=== PATIENT | male | born 1995 | race Caucasian/White ===

== ENCOUNTER 2021-04-15 10:31 | Inpatient (IN) | payer OTHER ==
[~2021-04-15] VITALS: Ht 175.3 cm; Wt 76.6 kg
[2021-04-15] MEDS ORDERED: LORazepam 2 MG TABLET PO PRN (13:15)
[2021-04-15] MEDS ORDERED: ZOLPIDEM TARTRATE 10 MG TABLET PO PRN (13:15)
[2021-04-15] MEDS ORDERED: HALOPERIDOL 5 MG TABLET PO PRN (13:15)
[2021-04-15 16:15] VITALS: BP 121/71
[2021-04-16] MEDS ORDERED: GuaiFENesin/D-METHORPHAN [SUGAR-FREE] 200-20MG/10 ML SYRUP UDCUP PO PRN (06:30)
[2021-04-16] MEDS ORDERED: NICOTINE 14 MG/24 HOUR PATCH TD PRN (06:30)
[2021-04-16] MEDS ORDERED: LOPERAMIDE HCL 2 MG CAPSULE PO PRN (06:30)
[2021-04-16] MEDS ORDERED: PETROLATUM,WHITE 28 GM JELLY TP PRN (06:30)
[2021-04-16] MEDS ORDERED: ALBUTEROL SULFATE HFA 90 MCG/PUFF 8 GM INHALER IH PRN (06:30)
[2021-04-16] MEDS ORDERED: DOCUSATE SODIUM 100 MG CAPSULE PO PRN (06:30)
[2021-04-16] MEDS ORDERED: IBUPROFEN 400 MG TABLET PO PRN (06:30)
[2021-04-16] MEDS ORDERED: CloNIDine HCL 0.1 MG TABLET PO PRN (06:30)
[2021-04-16] MEDS ORDERED: ACETAMINOPHEN 325 MG TABLET PO PRN (06:30)
[2021-04-16] MEDS ORDERED: MAGNESIUM HYDROXIDE SUSPENSION 30 ML UDCUP PO PRN (06:30)
[2021-04-16] MEDS ORDERED: ONDANSETRON HCL 4 MG TABLET PO PRN (06:30)
[2021-04-16] MEDS ORDERED: MAG HYDROX/AL HYDROX/SIMETH ES 30 ML SUSPENSION UDCUP PO PRN (06:30)
[2021-04-16 07:51] LABS: EOSINOPHILS % (AUTO) 4.6 % (1.0-6.0); HEMATOCRIT 49.9 % (41-53); HEMOGLOBIN 16.9 g/dL (13.5-17.5); LYMPHOCYTES # (AUTO) 1.7 K/uL (1.0-4.8); LYMPHOCYTES % (AUTO) 30.7 % (22.0-44.0); MEAN CORPUSCULAR HEMOGLOBIN 29.8 pg (26.0-34.0); MEAN CORPUSCULAR HGB CONC 33.9 G/dL (31.0-37.0); MEAN CORPUSCULAR VOLUME 88 fL (80-100); MONOCYTES # (AUTO) 0.4 K/uL (0.1-1.0); MONOCYTES % (AUTO) 7.8 % (2.0-9.0); NEUTROPHILS % (AUTO) 55.9 % (40.0-70.0); PLATELET COUNT (AUTO) 215 K/uL (150-450); RED BLOOD CELL COUNT(AUTO) 5.67 MIL/uL (4.50-5.90); RED CELL DISTRIBUTION WIDTH 13.2 % (11.5-14.5)
[2021-04-16 08:14] VITALS: BP 128/73
[2021-04-16 08:35] LABS: ALANINE AMINOTRANSFERASE 21 U/L (12-78); ALBUMIN 3.8 g/dL (3.4-5.0); ALKALINE PHOSPHATASE 61 U/L (46-116); ANION GAP 7 mmol/L (8-16); ASPARTATE AMINOTRANSFERASE 13 U/L (15-37); BILIRUBIN,TOTAL 0.4 mg/dL (0.1-1.0); CALCIUM, TOTAL 9.1 mg/dL (8.8-10.5); CARBON DIOXIDE 29 mmol/L (22-29); CHLORIDE 105 mmol/L (98-107); CHOL/HDL RATIO 4.3 (4.2-7.3); CHOLESTEROL 194 mg/dL (131-200); GLOMERULAR FILTR. RATE CALC > 60 mL/min (>60); GLUCOSE,RANDOM 85 mg/dL (70-110); HDL CHOLESTEROL 45 mg/dL (40-60); LDL CHOL (CALC.) 138 mg/dL (0-130); POTASSIUM 4.8 mmol/L (3.5-5.1); SODIUM SERUM 141 mmol/L (136-145); THYROID STIMULATING HORMONE 1.61 uIU/mL (0.36-3.74); TOTAL PROTEIN, SERUM 7.4 g/dL (6.4-8.2); TRIGLYCERIDES 53 mg/dL (15-150); UREA NITROGEN, BLOOD 16 mg/dL (7-18)
[2021-04-16] MEDS: OLANZapine 5 MG TABLET PO SCH (11:03)
[2021-04-16] MEDS: BuPROPion HCL XL 150 MG ER TABLET PO SCH (11:03)
[2021-04-16 16:14] VITALS: BP 119/76
[2021-04-17 01:51] VITALS: BP 120/70
[2021-04-17] MEDS: OLANZapine 5 MG TABLET PO SCH (08:18)
[2021-04-17] MEDS: BuPROPion HCL XL 150 MG ER TABLET PO SCH (08:18)
[2021-04-17 09:11] VITALS: BP 118/74
[2021-04-17 16:12] VITALS: BP 124/62
[2021-04-18 01:06] VITALS: BP 119/67
[2021-04-18] MEDS: BuPROPion HCL XL 150 MG ER TABLET PO SCH (08:49)
[2021-04-18] MEDS: OLANZapine 5 MG TABLET PO SCH (08:49)
[2021-04-18 10:20] VITALS: BP 104/89
[2021-04-18] MEDS ORDERED: BUPR-49 PO (10:33)
[2021-04-18] MEDS ORDERED: OLAN5TAB52 PO (10:33)
== END 2021-04-18 12:10 | disposition home or self-care (01) | DRG 885 ==
LOC: B2S 13:16
PROVIDERS: ADMIT Psychiatry & Neurology Child & Adolescent Psychiatry; ATTEND Psychiatry & Neurology Child & Adolescent Psychiatry
DX: F23 Brief psychotic disorder (principal); K59.00 Constipation, unspecified; F41.9 Anxiety disorder, unspecified; R10.13 Epigastric pain; Z59.00 Homelessness unspecified
CPT/HCPCS: 80053; 80061; 83036; 84436; 84439; 84443; 85025